=== PATIENT | male | born 1960 | race Caucasian/White ===

== ENCOUNTER 2020-12-21 23:36 | Emergency (ER) | payer MEDICAID, OTHER ==
[~2020-12-21] VITALS: Ht 182.9 cm; Wt 95.0 kg
[~2020-12-21 23:36] MED LIST: IBUP-1986 PO
[2020-12-22] MEDS ORDERED: fentaNYL/PF 50MCG/1 ML 2ML syringe IV ONE ×3 (00:40→01:35)
[2020-12-22] MEDS ORDERED: propofol 10mg/ml 20ml vial IV ONE (00:50)
[2020-12-22 02:30] VITALS: BP 160/96
[2020-12-22] MEDS ORDERED: HYDR-3973 PO (02:36)
[2020-12-22] MEDS ORDERED: CEPH-585 PO (02:36)
[2020-12-22] MEDS ORDERED: ketorolac tromethamine 15mg/ml inj. IV ONE (02:50)
== END 2020-12-22 03:19 | disposition home or self-care (01) ==
LOC: ER 23:36
DX: S82.62XA Displaced fracture of lateral malleolus of left fibula, initial encounter for closed fracture (principal); F17.210 Nicotine dependence, cigarettes, uncomplicated; Z98.890 Other specified postprocedural states; Z72.89 Other problems related to lifestyle; Z79.2 Long term (current) use of antibiotics; Z79.899 Other long term (current) drug therapy; X58.XXXA Exposure to other specified factors, initial encounter; Y93.89 Activity, other specified; Y92.89 Other specified places as the place of occurrence of the external cause; Y99.8 Other external cause status
CPT/HCPCS: 27810; 73600; 73610; 94799; 96374; 96375; 99152; 99285; J1885; J3010; 94760

== ENCOUNTER 2021-01-07 11:46 | Day surgery (SDC) | payer BC ==
[2021-01-01 11:29] LABS: BASOPHILS % (AUTO) 0.5 % (0-1); EOSINOPHILS # (AUTO) 0.1 X10'3 (0-0.9); EOSINOPHILS % (AUTO) 2.4 % (0-6); LYMPHOCYTES # (AUTO) 1.3 X10'3 (1.1-4.8); LYMPHOCYTES % (AUTO) 22.9 % (21-51); MEAN CORPUSCULAR HEMOGLOBIN 33.4 PG (27.0-31.0); MEAN CORPUSCULAR HGB CONC 34.4 g/dL (33.0-36.5); MEAN CORPUSCULAR VOLUME 97.1 FL (78-98); MEAN PLATELET VOLUME 6.8 FL (7.4-10.4); MONOCYTES # (AUTO) 0.5 X10'3 (0-0.9); MONOCYTES % (AUTO) 9.5 % (2-12); NEUTROPHILS # (AUTO) 3.7 X10'3 (1.8-7.7); NEUTROPHILS % (AUTO) 64.7 % (42-75); PRE OP HEMATOCRIT 40.7 % (42.0-52.0); PRE OP PLATELET COUNT 401 X10'3 (140-440); RED BLOOD COUNT 4.19 X10'6 (4.70-6.10); RED CELL DISTRIBUTION WIDTH 13.1 % (11.5-14.5)
[2021-01-01 11:44] LABS: ALBUMIN 3.4 G/DL (3.4-5.0); ALBUMIN/GLOBULIN RATIO 0.9 (1.1-1.5); ALKALINE PHOSPHATASE 60 IU/L (46-116); BLOOD UREA NITROGEN 16 MG/DL (7-18); BUN/CREATININE RATIO 18.2 (5.4-32.0); CALCIUM 8.4 MG/DL (8.5-10.1); CHLORIDE 107 MMOL/L (99-107); CREATININE 0.88 MG/DL (0.60-1.10); PRE OP ALT 17 U/L (30-65); PRE OP BILIRUB, TOTAL 0.5 MG/DL (0.0-1.0); PRE OP GLUCOSE 96 MG/DL (70-104); TOTAL CARBON DIOXIDE 24.4 MMOL/L (24-32); TOTAL PROTEIN 7.2 G/DL (6.4-8.2); eGFR 88 ML/MIN
[2021-01-01 11:45] LABS: PRE OP ANION GAP 11 (8-16); PRE OP AST 13 U/L (10-37); PRE OP POTASSIUM 3.7 MMOL/L (3.4-5.1); PRE OP SODIUM 142 MMOL/L (135-145)
[2021-01-07] VITALS (18 sets, daily range): BP systolic 137–165; BP diastolic 78–92
[~2021-01-07] VITALS: Ht 182.9 cm; Wt 83.0 kg
[~2021-01-07 11:46] MED LIST changes: +albuterol 2.5 MG/3 ML nebule NEB ONE; +cefazolin/dext.iso 2gm/100ml IV ONE; +famotidine 20mg tablet PO ONE; +ringers solution, lacted 1,000 ML IV SCH; +vancomycin 1,500 MG in NS 300ml IV soln IV ONE
[2021-01-07] MEDS ORDERED: BUPIVAcaine/PF 2.5mg/ml (0.25%) 10ml vial ONE ×2 (13:21→16:26)
[2021-01-07] MEDS ORDERED: vancomycin 1,000mg inj ONE (13:21)
[2021-01-07] MEDS ORDERED: sevoflurane 250ml liquid IH ONE (14:07)
[2021-01-07] MEDS ORDERED: fentaNYL/PF 50MCG/1 ML 2ML syringe ONE ×2 (14:11→14:56)
[2021-01-07] MEDS ORDERED: propofol inj 20 ML IV ONE (14:12)
[2021-01-07] MEDS ORDERED: midazolam 1 mg/ML 2ml injection ONE (14:12)
[2021-01-07] MEDS ORDERED: ROPIVAcaine 0.5% (5mg/ml) 30ml vial ONE (14:18)
[2021-01-07] MEDS ORDERED: ondansetron/PF 4mg/2ml inj IV PRN (15:30)
[2021-01-07] MEDS ORDERED: morphine 2 MG/ML inj. syringe IV PRN (15:30)
[2021-01-07] MEDS ORDERED: proCHLORperazine 10 MG/2 ml inj IV PRN (15:30)
[2021-01-07] MEDS ORDERED: morphine 4 MG/ML inj SYRINge IV PRN (15:30)
[2021-01-07] MEDS ORDERED: meperidine/PF 25mg/ml syringe IV PRN ×2 (15:30)
[2021-01-07] MEDS ORDERED: ringers solution, lacted 1,000 ML IV SCH (15:30)
--- NOTE | 2021-01-07 16:50 | NUR ---
Received from OR via [facility], accompanied by Anesthesiologist DR HODGE and report given by Anesthesiologist. PT VERY DROWSY, NO S/S OF DISTRESS/DISCOMFORT. 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 Addendum: 01/07/21 at 1718 by Polina Akbar RN Amended: Links added.
[2021-01-07] MEDS: meperidine/PF 25mg/ml syringe IV PRN ×2 (17:42→17:50)
[2021-01-07] MEDS ORDERED: ketorolac trometh. 30mg/ml inj. IV ONE (18:35)
[2021-01-07] MEDS ORDERED: acetaminophen 1,000mg/100ml IV 100 ML IV ONE (18:35)
[2021-01-07] MEDS ORDERED: HYDROcodone/acetaminophen 10/325mg tab PO ONE (18:35)
--- NOTE | 2021-01-07 19:50 | NUR ---
PTS PAIN MUCH IMPROVED, ABLE TO SAFELY PIVOT FROM BED TO W/C. D/C INSTRUCTIONS GIVEN AND GONE OVER W/PT AND PTS SON. PT D/CD TO HOME VIA W/C TO PRIVATE VEHICLE W/O INCIDENT. Addendum: 01/07/21 at 2013 by Polina Akbar RN Amended: Links added.
== END 2021-01-07 19:50 | disposition home or self-care (01) ==
LOC: PAS 11:46
PROVIDERS: ATTEND Orthopaedic Surgery
DX: S82.872A Displaced pilon fracture of left tibia, initial encounter for closed fracture (principal); Z20.822 Contact with and (suspected) exposure to COVID-19; Z98.890 Other specified postprocedural states; Z72.89 Other problems related to lifestyle; F17.210 Nicotine dependence, cigarettes, uncomplicated; W10.9XXA Fall (on) (from) unspecified stairs and steps, initial encounter; Y93.89 Activity, other specified; Y92.89 Other specified places as the place of occurrence of the external cause; Y99.8 Other external cause status; G89.18 Other acute postprocedural pain; Z79.899 Other long term (current) drug therapy
CPT/HCPCS: 27828; 36415; 64445; 64447; 76942; 80053; 82948; 85025; 93005; 94640; 94760; C1713; J0131; J1885; J2175; J2250; J2704; J3010; J3370; J3490; J7040; U0003; U0005; A4215; A4618; A6449; A7000; J2795; J7120